=== PATIENT | male | born 2000 | race Hispanic/Latino ===

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

== ENCOUNTER 2020-11-04 17:54 | Emergency (ER) | payer OTHER | END 2020-11-04 18:22 | disposition left against medical advice (07) | LOC: EDH 17:54 | DX: R10.9 Unspecified abdominal pain (principal); K21.9 Gastro-esophageal reflux disease without esophagitis; Z53.21 Procedure and treatment not carried out due to patient leaving prior to being seen by health care provider ==